=== PATIENT | female | born 1970 | race Caucasian/White ===

== ENCOUNTER 2017-08-04 13:40 | Emergency (ER) | payer OTHER ==
[2017-08-04 13:45] VITALS: BP 112/62
--- NOTE | 2017-08-04 16:05 | ED ---
Skin Complaint - HPI Summary HPI Summary: Patient presents to the ED with CC of discolorations to the lower back x 2 weeks. Denies pain, itching, warmth. 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 She has been on steroid injections for several years with no reaction, and has had several lidocaine injections in the past 2 months with the last occurring 1 month ago and did not have a reaction until 2 weeks ago. Denies fevers, sweats, chills, DANIEL, neck pain or spine pain out of baseline. The rash was captured on an image and has not changed since first noticing it 2 weeks ago. There are 2 scabs to the lateral L and R sides which appear to be healed with no open lesions present. Denies history of MRSA. - History of Current Complaint Chief Complaint: EDRashSkinAbscess Time Seen by Provider: 08/04/17 13:56 Stated Complaint: RASH LOWER BACK Hx Obtained From: Patient Onset/Duration: Started Weeks Ago Skin Exposure Onset/Duration: Weeks Ago Timing: Lasting Weeks Onset Severity: Mild Current Severity: Mild Pain Intensity: 0 Pain Scale Used: 0-10 Numeric Skin Location: Discrete - low back Character: Redness Aggravating Symptom(s): Nothing Alleviating Symptom(s): Nothing Associated Signs & Symptoms: Negative Related History: Recent change in medication - Allergy/Home Medications Allergies/Adverse Reactions: Allergies Allergy/AdvReac Type Severity Reaction Status Date / Time No Known Allergies Allergy Verified 08/04/17 13:42 PMH/Surg Hx/FS Hx/Imm Hx Previously Healthy: Yes Endocrine/Hematology History: Reports: Hx Anemia - d/t splenectomy, Other Endocrine/Hematological Disorders - ANEMIA Denies: Hx Diabetes Cardiovascular History: Denies: Hx Hypertension, Hx Pacemaker/ICD Respiratory History: Reports: Hx Chronic Bronchitis GI History: Reports: Hx Gall Bladder Disease - gallbladder removed, Hx Gastroesophageal Reflux Disease, Hx Hiatal Hernia, Other GI Disorders - Barretts Esphogus Musculoskeletal History: Reports: Hx Back Problems - chronic pain, Hx Orthopedic Injury - shoulder pain Sensory History: Reports: Hx Contacts or Glasses - Reading Glasses Denies: Hx Hearing Aid Opthamlomology History: Reports: Hx Contacts or Glasses - Reading Glasses Neurological History: Reports: Other Neuro Impairments/Disorders - dizziness and headaches d/t pinched nerve in shoulder,[facility] PT Psychiatric History: Denies: Hx Panic Disorder - Cancer History Hx Chemotherapy: No Hx Radiation Therapy: No - Surgical History Surgery Procedure, Year, and Place: SPLENECTOMY 1995,GALLBLADDER 1996, C- SECTION 2007; BILAT VARISCOSE VEINS 2014 Infectious Disease History: No Infectious Disease History: Denies: Traveled Outside the [place] in Last 30 Days - Social History Occupation: Employed Full-time Lives: With Family Alcohol Use: None Hx Substance Use: No Substance Use Type: Reports: None Hx Tobacco Use: Yes Smoking Status (MU): Heavy Every Day Tobacco Smoker Type: Cigarettes Amount Used/How Often: 1/2-3/4 PPD Have You Smoked in the Last Year: Yes Review of Systems Constitutional: Negative Negative: Fever, Chills, Fatigue Eyes: Negative Cardiovascular: Negative Respiratory: Negative Genitourinary: Negative Positive: no symptoms reported, see HPI Musculoskeletal: Negative Positive: Other - erythema to the lower back Neurological: Negative All Other Systems Reviewed And Are Negative: Yes Physical Exam Triage Information Reviewed: Yes Vital Signs On Initial Exam: Initial Vitals Temp Pulse Resp BP Pulse Ox 98.6 F 67 16 112/62 98 08/04/17 13:42 08/04/17 13:42 08/04/17 13:42 08/04/17 13:42 08/04/17 13:42 Vital Signs Reviewed: Yes Appearance: Positive: Well-Appearing, Well-Nourished Skin: Positive: Warm, Skin Color Reflects Adequate Perfusion, Other - reticular pattern rash to the lower back which is blanchable, non-pruritic, no warmth or open lesions. Head/Face: Positive: Normal Head/Face Inspection Eyes: Positive: EOMI, GRACIELA, Conjunctiva Clear Neck: Positive: Supple, No Lymphadenopathy Respiratory/Lung Sounds: Positive: Clear to Auscultation, Breath Sounds Present Cardiovascular: Positive: RRR, Pulses are Symmetrical in both Upper and Lower Extremities Musculoskeletal: Positive: Normal, Strength/ROM Intact Neurological: Positive: Speech Normal Psychiatric: Positive: Normal - Worth Coma Scale Coma Scale Total: 15 Diagnostics - Vital Signs Vital Signs Temp Pulse Resp BP Pulse Ox 08/04/17 13:42 98.6 F 67 16 112/62 98 - Laboratory Lab Statement: Any lab studies that have been ordered have been reviewed, and results considered in the medical decision making process. Course/Dx - Course Course Of Treatment: Patient presents with 2 weeks reticular pattern rash to the lower back which is blanchable, non-pruritic, no warmth or open lesions. I have evaluated for possible reaction to the lidocaine injections vs. cellulitis. There is no solid area of spreading erythema and or warmth for concern for a cellulitis. Likely localized reaction from lidocaine. Also a possible reaction to constant heat provided to the area causing pigmented dermatosis which is not purpuric. The areas are macules with no texture. I have discussed treatment options with the patient who agrees to follow up with PCP and show the photos, however there is little concern for bacterial infection. Patient is OK with plan and discharge. - Diagnoses Provider Diagnoses: Rash of back Discharge - Discharge Plan Condition: Stable Disposition: HOME Referrals: Kofi Osborne, BEAM DYER [Primary Care Provider] - Additional Instructions: As discussed, I think you are having a localized reaction to the lidocaine If you develop any worsening redness, swelling or warmth or pain - return to the ED
== END 2017-08-04 14:54 | disposition home or self-care (01) ==
LOC: ED 13:40
DX: R21 Rash and other nonspecific skin eruption (principal); D64.9 Anemia, unspecified
CPT/HCPCS: 99282